=== PATIENT | female | born 1930 | race Caucasian/White ===

== ENCOUNTER → 2016-12-29 | Outpatient (CLI) | payer OTHER, MEDICARE | LOC: MMPC 11:11 | PROVIDERS: ATTEND Internal Medicine | DX: E78.00 Pure hypercholesterolemia, unspecified (principal); E03.9 Hypothyroidism, unspecified; Z95.5 Presence of coronary angioplasty implant and graft | CPT/HCPCS: 99213; G0463 ==

== ENCOUNTER → 2017-04-04 | Outpatient (CLI) | payer OTHER, MEDICARE ==
[2017-04-04 09:10] LABS: BASOPHILS # (AUTO) 0.06 10*3/UL; BASOPHILS % (AUTO) 1.2 % (0-1); EOSINOPHILS # (AUTO) 0.04 10*3/UL; EOSINOPHILS % (AUTO) 0.8 % (0-8); HEMATOCRIT 43.2 % (37.0-47.0); HEMOGLOBIN 14.6 g/dL (12.0-16.0); LYMPHOCYTES # (AUTO) 1.74 10*3/uL; MEAN CORPUSCULAR HGB CONC 33.8 g/dL (33-37); MEAN CORPUSCULAR VOLUME 97.7 FL (81-99); MEAN PLATELET VOLUME 9.9 FL (7.4-12.2); MONOCYTES # (AUTO) 0.63 10*3/UL (0.3-0.8); MONOCYTES % (AUTO) 12.6 % (5-15); NEUTROPHILS # (AUTO) 2.53 10*3/UL; NEUTROPHILS % (AUTO) 50.5 % (50-80); RED BLOOD COUNT 4.42 10^6/uL (4.20-5.40)
[2017-04-04 09:17] LABS: BUN/CREATININE RATIO 18.33 (6-20); CALCIUM 9.5 mg/dL (8.7-10.7)
[2017-04-04 09:18] LABS: PLATELET MORPHOLOGY COMMENT NORMAL MORPHOLOGY (NORM); RBC MORPHOLOGY COMMENT NORMAL MORPHOLOGY (NORM); WBC MORPHOLOGY COMMENT NORMAL MORPHOLOGY (NORM)
[2017-04-04 09:37] LABS: CHOL/HDL RATIO 2.75 RATIO (0-4.0); LDL CHOLESTEROL,CALCULATED 62.4 mg/dL
[2017-04-04 10:44] LABS: FREE T4 (FREE THYROXINE) 1.13 ng/dL (0.93-1.71)
== END ==
LOC: LAB 08:49
PROVIDERS: ATTEND Internal Medicine
DX: E78.5 Hyperlipidemia, unspecified (principal); E03.9 Hypothyroidism, unspecified; I10 Essential (primary) hypertension; Z95.5 Presence of coronary angioplasty implant and graft
CPT/HCPCS: 36415; 80053; 80061; 82550; 84439; 84443; 85025

== ENCOUNTER 2018-11-01 19:06 | Inpatient (IN) ==
--- NOTE | 2018-11-01 19:46 | PDOC ---
Gen Adult / Medical Screen HPI - General Chief Complaint: General Medical Stated Complaint: cough, dizzy, weakness x 1 week Date Seen by Provider: 11/01/18 Time Seen by Provider: 19:39 Source: POSITIVE: Patient Exam Limitations: POSITIVE: No limitations, Clinical condition Nurse's Notes Reviewed & Considered: Yes - Indicators Abnormal Mental Status: No - History of Present Illness Initial Comments: This is a well-developed, well-nourished, very pleasant, 88-year-old female, who comes in today with upper respiratory symptoms. Patient comes in today with cough, fever, runny nose, that has been ongoing for the last couple of days and got worse today. She denies any headache, no sore throat, she does have some shortness of breath and cough with chest pain associated with her coughing. She denies any nausea vomiting or diarrhea, no hematuria or dysuria, no rashes, no myalgias or arthralgias. Body Location Affected: REPORTS: Chest Timing: REPORTS: Gradual, Getting Worse Duration: >24 hours Similar Symptoms Previously: No Recent Care Received: REPORTS: Denies Any Prior Injuries Related to Current Complaint?: No - Patient Home Medications Home Medications: Home Medications Nitroglycerin 0.4 mg SL PRN 04/01/11 cholecalciferol (vitamin D3) 2,000 unit tablet 2,000 unit PO QDAY tab 04/04/18 cinnamon bark 500 mg capsule 1,000 mg PO QDAY cap 04/04/18 magnesium oxide 400 mg (241.3 mg magnesium) tablet 400 mg PO QDAY tab 04/04/18 multivitamin-ferrous fumarate-folic acid 18 mg-400 mcg tablet 1 tab PO QDAY 04/04/18 levothyroxine 75 mcg tablet 75 mcg PO QDAY #90 tab 06/04/18 losartan 25 mg tablet 25 mg PO QDAY #90 tab 06/04/18 metoprolol tartrate 50 mg tablet 25 mg PO BID #90 tab 06/04/18 rosuvastatin 20 mg tablet 20 mg PO QHS #90 tab 07/02/18 spironolactone 25 mg-hydrochlorothiazide 25 mg tablet 0.5 tab PO QDAY #60 tab 08/29/18 [place] eyes PO TID 10/03/18 azithromycin 250 mg tablet 500 mg PO Q24H #6 tab 10/30/18 - Patient Allergies Allergies/Adverse Reactions: Allergies Allergy/AdvReac Type Severity Reaction Status Date / Time [id number] Reductase AdvReac Intermediate myalgias Verified 11/01/18 19:07 Inhibitor Past Medical History - heen HEENT History: Cataracts, Dentures/Partials Cardiovascular History: Hypertension, CAD, Hyperlipidemia Additional Cardiovasular History: CARDIAC STENT X1 Respiratory History: Denies History Gastrointestinal History: GERD, Other (please comment) Additional Gastrointestinal History: DIARRHEA/ GERD/ ABD PAIN, CHANGE IN STOOL CALIBUR/GASTRITIS/ COLON POLYPS/ ESOPHAGITIS Genitourinary History: Incontinence Endocrine History: Hypothyroidism, Other (please comment) Additional Endocrine History: MULTINODULAR GOITER ON, L-THYROXINE FOR SUPRESSION Musculoskeletal History: Osteoporosis Prosthesis or Implant: No Neurological History: Denies History Blood Disorders: Denies History Psychiatric History: Denies History History of Sexually Transmitted Diseases: No Cancer History: Skin Cancer Treatment / Date(s) of Treatment: , 2016 In Past Year Been Physically Harmed or Verbally Threatened: No History of MDRO: No History of Other Communicable Diseases: No Tobacco Use: Never Smoker Alcohol Use: None In the Past 12 Months, Have Used or Abuse Any Substance: None Previous Surgical History: Yes Type / Date of Surgery: APPY/ STACEY/ P HYST/ THYROIDECTOMY/CARDIAC STENT X1/colonoscopy Anesthesia Reactions: No Malignant Hyperthermia: No Significant Family History: Other (please comment) Additional Family History: mother had chronic lung issues ROS - Limitations ROS Limitations: No Limitations Constitution: REPORTS: Denies Symptoms Cardiovascular: REPORTS: Chest Pain (With coughing) Respiratory: REPORTS: Cough Non Productive, Hurts To Breathe, Shortness Of Breath, Wheezing Neurological: REPORTS: Denies Neuro Symptoms Gastrointestinal: REPORTS: Denies GI Symptoms Endocrine: REPORTS: Denies Symptoms Musculoskeletal: REPORTS: Denies MS Symptoms Genitourinary: REPORTS: Denies Symptoms Eyes: REPORTS: Denies Symptoms ENT: REPORTS: Nasal Drainage Skin: REPORTS: Denies Skin Symptoms Lympathic: REPORTS: Denies Lympathic Symptoms Immunologic: POSITIVE: Denies Symptoms Psychiatric: POSITIVE: Denies Psych Symptoms Gen Adult/Medical Screen Exam - General Appearance General Appearance: POSITIVE: Alert, Cooperative, No Acute Distress, No Evidence of Trauma - HEENT HEENT: POSITIVE: Head Inspection Nml, Eyes Inspection Nml, Ears Inspection Nml, Nose Inspection Nml, Oral/Dental Inspect. Nml, Pharynx Inspect. Nml, PERRL, EOMI - Pupils Pupil Size: 5 mm: Bilateral - Neck Neck: POSITIVE: Normal Inspection, Thyroid Normal - Respiratory Respiratory: POSITIVE: No Respiratory Distress, Chest Non-Tender, Wheezes (Right base) - Cardiovascular Cardiovascular: POSITIVE: Regular Rate & Rhythm, No Murmur, No Gallop, PMI Nor mal Peripheral Pulses: Radial (R): 4+ - Abdomen Abdomen: Soft: (All Quadrants), Normal Bowel Sounds: (All Quadrants), Denies Tenderness: (All Quadrants), No Splenomegaly: (All Quadrants), No Hepatomegaly: (All Quadrants), No Guarding: (All Quadrants), No Rebound: (All Quadrants), No Palpable Pulse: (All Quadrants), No Palpabale Mass: (All Quadrants), No Distention: (All Quadrants), No Rigidity: (All Quadrants) - Back Back: POSITIVE: Normal Inspection - Neurological / Psychological Mental Status: POSITIVE: Mood Normal, Affect Normal Orientation: POSITIVE: Oriented x 3 - Skin Skin: POSITIVE: Normal Color, Warm, Dry, No Rash - Extremities Extremity: Non-Tender: (All Extremities), Normal ROM: (All Extremities), Normal Inspection: (All Extremities), Pelvis Stable: (All Extremities) Procedures - Laceration/Wound Repair Did patient have a laceration repair: No Gen Adlt/Medical Scrn Progress - Results Reviewed by me Xrays/CTs/US Reviewed by me: Yes Discussed with Radiologist: Yes Lab Results Reviewed by Me: Yes CBC and BMP: 11/01/18 20:05 11/01/18 20:05 Lab Results:: Laboratory Results 11/01/18 11/01/18 11/01/18 20:00 20:05 20:05 WBC 20.77 H RBC 4.04 L Hgb 13.4 Hct 39.4 MCV 97.5 MCH 33.2 H MCHC 34.0 RDW Std Deviation 47.0 RDW Coeff of Bailey 13.5 Plt Count 194 MPV 10.0 Immature Gran % (Auto) 0.2 Neut % (Auto) 82.4 H Lymph % (Auto) 9.1 L [place] % (Auto) 8.0 Eos % (Auto) 0.1 Baso % (Auto) 0.2 Immature Gran # (Auto) 0.05 Neut # (Auto) 17.10 Lymph # (Auto) 1.90 [place] # (Auto) 1.66 H Eos # (Auto) 0.02 Baso # (Auto) 0.04 WBC Morphology Comment Normal morphology Plt Morphology Comment Normal morphology RBC Morph Comment Normal morphology VBG pH 7.48 H VBG pCO2 38 L VBG HCO3 28 H VBG Base Excess 4 H Sodium 139 Potassium 4.2 Chloride 101 Carbon Dioxide 25 Anion Gap 13 BUN 30 H Creatinine 1.2 BUN/Creatinine Ratio 25.00 H Glucose 138 H Calculated Osmolality 295.0 H Lactic Acid Calcium 9.6 Total Bilirubin 1.8 H AST 58 H ALT 59 H Alkaline Phosphatase 121 C-Reactive Protein 25.7 H NT-Pro-B Natriuret Pep 559 H Total Protein 6.7 Albumin 3.9 Globulin 2.8 Albumin/Globulin Ratio 1.30 Monoscreen Group A Strep Screen 11/01/18 11/01/18 20:05 20:15 WBC RBC Hgb Hct MCV MCH MCHC RDW Std Deviation RDW Coeff of Bailey Plt Count MPV Immature Gran % (Auto) Neut % (Auto) Lymph % (Auto) [place] % (Auto) Eos % (Auto) Baso % (Auto) Immature Gran # (Auto) Neut # (Auto) Lymph # (Auto) [place] # (Auto) Eos # (Auto) Baso # (Auto) WBC Morphology Comment Plt Morphology Comment RBC Morph Comment VBG pH VBG pCO2 VBG HCO3 VBG Base Excess Sodium Potassium Chloride Carbon Dioxide Anion Gap BUN Creatinine BUN/Creatinine Ratio Glucose Calculated Osmolality Lactic Acid 1.6 Calcium Total Bilirubin AST ALT Alkaline Phosphatase C-Reactive Protein NT-Pro-B Natriuret Pep Total Protein Albumin Globulin Albumin/Globulin Ratio Monoscreen Negative Group A Strep Screen Negative - Patient's Progress Pain Medication Addressed: POSITIVE: Yes Re-Examine Time: 21:15 Status: POSITIVE: Improved MDM / ED Course: Patient was evaluated, an IV started, blood drawn and sent to the lab for studies, chest x-ray was obtained. Findings: Blood cultures are pending, CBC shows white count of 20.77, hemoglobin and hematocrit platelets are normal, neutrophils are elevated at 82.4%, lymphocytes are 9.1%. Blood gases show pH is 7.48, PCO2 of 38, bicarbonate of 28, base excess of 4. CMP shows a BUN of 30, glucose of 138, total bilirubin 1.8, AST of 58, ALT of 59. Lactic acid is 1.6. CRP is 25.7 and BNP is 559. [place] is negative. Strep is negative. Bilateral thigh respiratory pathogen panel is negative. Chest x-ray, per my interpretation, shows bibasilar pneumonia. Assessment: Pneumonia with hypoxia and fever. Plan: Patient receives Rocephin, azithromycin, and DuoNeb. She is being admitted by the hospitalist. - Consult Consult (If Yes, Name of Consulting MD & Time Called): Yes (Dr. Hester at 2115 hrs.) Consulting MD will see pt:: POSITIVE: [facility] [place] Admit Counseled: POSITIVE: Patient, Family, RE: Lab Results, RE: Radiology Results, RE: DX, RE: Need for F/U Patient Care Time - Estimated PCT Patient Care Time (In Minutes): 45 Vital Signs - Recent Vital Signs Vital Signs: Vital Signs (Last 8 hours) Temp Pulse Pulse Resp BP Pulse Ox 11/01/18 20:21 124 H 18 11/01/18 20:20 100 20 93 11/01/18 20:17 98.1 F 119 H 24 130/82 92 - VS Reviewed Vital Signs Reviewed: Yes Discharge Clinical Impression: Fever, Pneumonia, Elevated LFTs Discharge Disposition: Admit to Inpatient Condition: Stable Follow Up With: ALCIDES GALVAN [Primary Care Provider] - Date Decision to Admit to Inpatient: 11/01/18 Time Decision to Admit to Inpatient: 21:18
[2018-11-01] MEDS ORDERED: ONDANSETRON 4 MG/2 ML VIAL IVP ONE (19:47)
[2018-11-01] MEDS ORDERED: Sodium Chloride 0.9% 1,000 ML PRIMARY IV ONE (19:47)
[2018-11-01] MEDS ORDERED: KETOROLAC 15 MG/1 ML VIAL IVP ONE (19:47)
[2018-11-01] MEDS ORDERED: IPRATROPIUM/ALBUTEROL SULFATE 3 ML NEB NEB ONE (19:50)
[2018-11-01 20:15] LABS: VENOUS PH 7.48 (7.32-7.42)
[2018-11-01 20:20] LABS: BASOPHILS # (AUTO) 0.04 10*3/UL; BASOPHILS % (AUTO) 0.2 % (0-1); EOSINOPHILS # (AUTO) 0.02 10*3/UL; EOSINOPHILS % (AUTO) 0.1 % (0-8); Hematocrit [HCT] 39.4 % (37.0-47.0); Hemoglobin [HGB] 13.4 g/dL (12.0-16.0); MEAN CORPUSCULAR HEMOGLOBIN 33.2 PG (27-31); MEAN CORPUSCULAR VOLUME 97.5 FL (81-99); MONOCYTES # (AUTO) 1.66 10*3/UL (0.3-0.8); NEUTROPHILS % (AUTO) 82.4 % (50-80); RED BLOOD COUNT 4.04 10^6/uL (4.20-5.40)
[2018-11-01 20:28] LABS: PLATELET MORPHOLOGY COMMENT NORMAL MORPHOLOGY (NORM); RBC MORPHOLOGY COMMENT NORMAL MORPHOLOGY (NORM); WBC MORPHOLOGY COMMENT NORMAL MORPHOLOGY (NORM)
[2018-11-01 20:31] LABS: BLOOD UREA NITROGEN 30 mg/dL (7-22); SERUM ALBUMIN 3.9 g/dL (3.5-4.8)
[2018-11-01] MEDS ORDERED: cefTRIAXone Inj 2 GM in Sodium Chloride 0.9% 100 ML IV ONE (20:49)
--- NOTE | 2018-11-01 21:10 | DI ---
EXAM: XR Chest, 2 Views CLINICAL HISTORY: Fever, cough. TECHNIQUE: Frontal and lateral views of the chest. COMPARISON: CT chest dated 01/30/2007. FINDINGS: Lungs: Mild interstitial prominence in the lungs. Mild left basilar opacity. Pleural space: No significant pleural effusion. No pneumothorax. Heart: Normal cardiac silhouette size. Mediastinum: Unremarkable. No mediastinal widening. Bones/joints: Osseous degenerative changes. Osseous structures appear intact. IMPRESSION: 1. Mild left basilar opacity which may represent atelectasis or subtle pneumonia in the appropriate clinical setting. Recommend clinical correlation and follow-up imaging to assess for resolution. 2. Mild interstitial prominence in the lungs which may be related to mild interstitial edema, chronic interstitial lung disease or other process.
--- NOTE | 2018-11-01 21:31 | PDOC ---
HPI - History of Present Illness Date of Service: 11/01/18 Time of Service: 22:30 Chief Complaint: Cough, decreased appetite, fever the last few days History of Present Illness: This is an 88 years old female with medical history significant for history of hypertension, hypothyroidism, hypercholesterolemia and coronary artery disease with previous stent who presented to the hospital with history of cough, decreased appetite, fever intermittently the last few days. Apparently she did go to the urgent clinic on Monday they put her on decongestant. She continued to have symptoms with cough and shortness of breath so they brought her to the ER. Evaluation in the ER revealed hypoxia 88 with activity. Her white count was elevated at 21,000, her CRP was also elevated and a chest x-ray suggested pneumonia. She was given antibiotics and was admitted. Past Medical History Medical History: 1. History of hypertension. 2. History of hypercholesterolemia. 3. History of hypothyroidism. 4. History of coronary artery disease with previous stent Surgical History: 1. History of hysterectomy. 2. History of partial thyroidectomy for multinodular goiter. 3. History of cholecystectomy. 4. History of appendectomy Past Social History: Does not smoke, does not drink known drugs. She described herself as being active. Tobacco Use: Never Smoker In the Past 12 Months, Have Used or Abuse Any of the Following Substance: None Alcohol Use: None Medication / Allergies Home Medications: Home Medications Medication Instructions Recorded Confirmed Type Nitroglycerin 0.4 mg SL PRN 04/01/11 10/30/18 History cholecalciferol (vitamin D3) 2,000 2,000 unit PO QDAY tab 04/04/18 10/30/18 History unit tablet cinnamon bark 500 mg capsule 1,000 mg PO QDAY cap 04/04/18 11/01/18 History magnesium oxide 400 mg (241.3 mg 400 mg PO QDAY tab 04/04/18 11/01/18 History magnesium) tablet multivitamin-ferrous 1 tab PO QDAY 04/04/18 11/01/18 History fumarate-folic acid 18 mg-400 mcg tablet levothyroxine 75 mcg tablet 75 mcg PO QDAY #90 tab 06/04/18 11/01/18 Rx losartan 25 mg tablet 25 mg PO QDAY #90 tab 06/04/18 11/01/18 Rx metoprolol tartrate 50 mg tablet 25 mg PO BID #90 tab 06/04/18 11/01/18 Rx rosuvastatin 20 mg tablet 20 mg PO QHS #90 tab 07/02/18 11/01/18 Rx spironolactone 25 0.5 tab PO QDAY #60 tab 08/29/18 11/01/18 Rx mg-hydrochlorothiazide 25 mg tablet [place]mond eyes PO TID 10/03/18 10/30/18 History azithromycin 250 mg tablet 500 mg PO Q24H #6 tab 10/30/18 10/30/18 Rx Allergies/Adverse Reactions: Allergies Allergy/AdvReac Type Severity Reaction Status Date / Time [id number] Reductase AdvReac Intermediate myalgias Verified 11/01/18 19:07 Inhibitor Review of Systems - Review of Systems All Systems: Reviewed & No Additional Complaints Except as Stated Exam - Vitals Vital Signs: Vital Signs Temperature 98.1 F Temperature Source Temporal Artery Scan Pulse Rate [Pulse Oximeter] 119 Pulse Rate 124 Respiratory Rate 18 Blood Pressure [Left Arm] 130/82 Pulse Ox 93 Oxygen Delivery Method Room Air Height 5 ft 2 in Weight 140 lb - General General Appearance: No Acute Distress, Cooperative - Head Head Exam: Normal Inspection - Eye Eye Exam: POSITIVE: Normal Appearance - ENT ENT Exam: POSITIVE: Normal Exam - Neck Neck Exam: Normal Inspection - Respiratory Additional Respiratory Exam Details: Crackles heard at the lung bases - Cardiovascular Cardiovascular Exam: POSITIVE: RRR - GI/Abdominal GI/Abdominal Exam: POSITIVE: Normal Bowel Sounds, Non Tender, Non Distended, Soft, No Organomegaly - Rectal Rectal Exam: POSITIVE: Deferred - External Exam: POSITIVE: Deferred Exam: POSITIVE: Deferred - Extremities Extremities Exam: POSITIVE: Normal Inspection - Back Back Exam: POSITIVE: Normal Inspection - Neurological Neurological Exam: POSITIVE: Alert, Oriented x 3, CN II-XII Intact, No Facial Droop, Speech Intact / Clear, Moves All Extremities Equally - Psychiatric Psychiatric Exam: POSITIVE: Normal Affect Results - Labs CBC and BMP: 11/02/18 04:43 11/02/18 04:43 - Imaging Status: Report Reviewed by Me (Chest X ray 1. Mild left basilar opacity which may represent atelectasis or subtle pneumonia in the appropriate clinical setting. Recommend clinical correlation and follow-up imaging to assess for resolution. 2. Mild interstitial prominence in the lungs which may be related to mild interstitial edema, chronic interstitial lung disease or other process.) Assessment and Plan - Patient Problems (1) Pneumonia Current Visit: Yes Status: Acute Comment: She did receive Rocephin and Zithromax will continue with those. Code(s): J18.9 - Pneumonia, unspecified organism (2) Elevated LFTs Current Visit: Yes Status: Acute Comment: Unclear reason may be secondary to infection or Crestor. We'll repeat it tomorrow Code(s): R94.5 - Abnormal results of liver function studies (3) Hypothyroidism Current Visit: Yes Status: Acute Comment: Same med Code(s): E03.9 - Hypothyroidism, unspecified (4) History of hypertension Current Visit: Yes Status: Acute Comment: Continue metoprolol, losartan but will hold off on the diuretic Code(s): Z86.79 - Personal history of other diseases of the circulatory system
[2018-11-01] MEDS ORDERED: LIDOCAINE W/ SODIUM BICARB 0.5 ML SYR SUBD PRN (22:39)
[2018-11-01] MEDS: Metoprolol TARTRATE Tab 25 MG TAB PO SCH (23:06)
[2018-11-01] MEDS: Sodium Chloride 0.9% 1,000 ML PRIMARY IV SCH (23:10)
[2018-11-02] MEDS: LEVOTHYROXINE 75 MCG TABLET PO SCH (04:46)
[2018-11-02 05:21] LABS: BLOOD UREA NITROGEN 26 mg/dL (7-22); BUN/CREATININE RATIO 23.63 (6-20); SERUM ALBUMIN 3.1 g/dL (3.5-4.8)
[2018-11-02 05:25] LABS: BASOPHILS # (AUTO) 0.03 10*3/UL; BASOPHILS % (AUTO) 0.2 % (0-1); EOSINOPHILS # (AUTO) 0.02 10*3/UL; EOSINOPHILS % (AUTO) 0.1 % (0-8); Hematocrit [HCT] 35.4 % (37.0-47.0); Hemoglobin [HGB] 11.8 g/dL (12.0-16.0); LYMPHOCYTES # (AUTO) 0.95 10*3/uL; MEAN CORPUSCULAR HEMOGLOBIN 32.5 PG (27-31); MEAN CORPUSCULAR HGB CONC 33.3 g/dL (33-37); MEAN CORPUSCULAR VOLUME 97.5 FL (81-99); MEAN PLATELET VOLUME 10.1 FL (7.4-12.2); MONOCYTES % (AUTO) 7.4 % (5-15); NEUTROPHILS # (AUTO) 16.54 10*3/UL; RED BLOOD COUNT 3.63 10^6/uL (4.20-5.40)
[2018-11-02 05:43] LABS: PLATELET MORPHOLOGY COMMENT NORMAL MORPHOLOGY (NORM); RBC MORPHOLOGY COMMENT NORMAL MORPHOLOGY (NORM); WBC MORPHOLOGY COMMENT NORMAL MORPHOLOGY (NORM)
[2018-11-02] MEDS: IPRATROPIUM/ALBUTEROL SULFATE 3 ML NEB NEB PRN ×2 (07:08→10:36)
[2018-11-02] MEDS: Metoprolol TARTRATE Tab 25 MG TAB PO SCH ×2 (08:50→20:17)
[2018-11-02] MEDS: LOSARTAN 25 MG TABLET PO SCH (08:50)
[2018-11-02] MEDS: Sodium Chloride 0.9% 1,000 ML PRIMARY IV SCH (12:58)
--- NOTE | 2018-11-02 14:27 | PDOC(PROG) ---
Date of Service: 11/02/18 Time of Service: 23:15 Interval History: Subjective Feels somewhat better. Still have the cough though. Some mild shortness of breath. No wheezing. She did find the breathing treatment helpful. Appetite still not great. Objective : Data - Labs CBC and BMP: 11/02/18 04:43 11/02/18 04:43 Objective : Exam - General General Appearance: No Acute Distress, Cooperative - Head Head Exam: Normal Inspection - Eye Eye Exam: Normal Appearance - ENT ENT Exam: Normal Exam - Neck Neck Exam: Normal Inspection - Respiratory Additional Respiratory Exam Details: Few crackles at the bases here - Cardiovascular Cardiovascular Exam: RRR - GI/Abdominal GI/Abdominal Exam: Normal Bowel Sounds, Non Tender, Non Distended, Soft, No Organomegaly - Rectal Rectal Exam: Deferred - External Exam: Deferred Exam: Deferred - Extremities Extremities Exam: Normal Inspection - Back Back Exam: Normal Inspection - Neurological Neurological Exam: Alert, Oriented x 3, CN II-XII Intact, No Facial Droop, Speech Intact / Clear, Moves All Extremities Equally - Psychiatric Psychiatric Exam: Normal Affect - Integumentary Integumentary Exam: Normal Color Assessment and Plan - Patient Problems (1) Pneumonia Current Visit: Yes Status: Acute Comment: Continue current IV antibiotics. Code(s): J18.9 - Pneumonia, unspecified organism (2) Elevated LFTs Current Visit: Yes Status: Acute Comment: Somewhat improved. May be secondary to Crestor. Code(s): R94.5 - Abnormal results of liver function studies (3) Hypothyroidism Current Visit: Yes Status: Acute Comment: Same med Code(s): E03.9 - Hypothyroidism, unspecified (4) History of hypertension Current Visit: Yes Status: Acute Comment: Continue metoprolol and losartan continue holding the diuretic. Code(s): Z86.79 - Personal history of other diseases of the circulatory system
[2018-11-02] MEDS ORDERED: Sodium Chloride 0.9% 100 ML IV ONE (20:14)
[2018-11-02] MEDS: ACETAMINOPHEN 325 MG TABLET PO PRN (20:18)
[2018-11-02] MEDS: cefTRIAXone Inj 2 GM in Sodium Chloride 0.9% 100 ML IV SCH (20:18)
[2018-11-02] MEDS ORDERED: Rosuvastatin Tab 20 MG TAB PO SCH (21:00)
[2018-11-03] MEDS: Sodium Chloride 0.9% 1,000 ML PRIMARY IV SCH (04:29)
[2018-11-03] MEDS: LEVOTHYROXINE 75 MCG TABLET PO SCH (04:35)
[2018-11-03 05:09] LABS: BASOPHILS # (AUTO) 0.03 10*3/UL; BASOPHILS % (AUTO) 0.2 % (0-1); EOSINOPHILS # (AUTO) 0.05 10*3/UL; EOSINOPHILS % (AUTO) 0.3 % (0-8); Hematocrit [HCT] 33.3 % (37.0-47.0); Hemoglobin [HGB] 11.1 g/dL (12.0-16.0); LYMPHOCYTES # (AUTO) 1.41 10*3/uL; MEAN CORPUSCULAR HEMOGLOBIN 32.8 PG (27-31); MEAN CORPUSCULAR HGB CONC 33.3 g/dL (33-37); MEAN CORPUSCULAR VOLUME 98.5 FL (81-99); MEAN PLATELET VOLUME 10.3 FL (7.4-12.2); MONOCYTES % (AUTO) 8.7 % (5-15); NEUTROPHILS # (AUTO) 15.25 10*3/UL; NEUTROPHILS % (AUTO) 82.7 % (50-80); RED BLOOD COUNT 3.38 10^6/uL (4.20-5.40)
[2018-11-03 05:13] LABS: PLATELET MORPHOLOGY COMMENT NORMAL MORPHOLOGY (NORM); RBC MORPHOLOGY COMMENT NORMAL MORPHOLOGY (NORM); WBC MORPHOLOGY COMMENT NORMAL MORPHOLOGY (NORM)
[2018-11-03 05:15] LABS: BLOOD UREA NITROGEN 19 mg/dL (7-22); SERUM ALBUMIN 2.9 g/dL (3.5-4.8)
[2018-11-03] MEDS: LEVALBUTEROL HCL 1.25 MG/3 ML NEB PRN ×2 (07:34→12:25)
--- NOTE | 2018-11-03 07:43 | PDOC(PROG) ---
Date of Service: 11/03/18 Time of Service: 07:45 Interval History: Subjective She said she feels better compared to when she came in. She is still having the cough but not as bad as before. Some mild shortness of breath. Objective : Data - Labs CBC and BMP: 11/03/18 04:28 11/03/18 04:28 Objective : Exam - General General Appearance: No Acute Distress, Cooperative - Head Head Exam: Normal Inspection - Eye Eye Exam: Normal Appearance - ENT ENT Exam: Normal Exam - Neck Neck Exam: Normal Inspection - Respiratory Additional Respiratory Exam Details: Few crackles and occasional wheeze at the bases - Cardiovascular Cardiovascular Exam: RRR - GI/Abdominal GI/Abdominal Exam: Normal Bowel Sounds, Non Tender, Non Distended, Soft, No Organomegaly - Rectal Rectal Exam: Deferred - External Exam: Deferred Exam: Deferred - Extremities Extremities Exam: Normal Inspection - Back Back Exam: Normal Inspection - Neurological Neurological Exam: Alert, Oriented x 3, CN II-XII Intact, No Facial Droop, Speech Intact / Clear, Moves All Extremities Equally - Psychiatric Psychiatric Exam: Normal Affect Assessment and Plan - Patient Problems (1) Pneumonia Current Visit: Yes Status: Acute Comment: Continue current antibiotics. Will repeat her labs tomorrow. Her white count still elevated. She did receive some steroid last week and maybe that played part in the elevated white count. However her CRP was elevated when she came in which suggests there is an inflammatory response. Code(s): J18.9 - Pneumonia, unspecified organism (2) Elevated LFTs Current Visit: Yes Status: Acute Comment: Still mildly elevated will hold her Crestor. We'll keep an eye on her LFTs will order ultrasound tomorrow. Code(s): R94.5 - Abnormal results of liver function studies (3) Hypothyroidism Current Visit: Yes Status: Acute Comment: Same med Code(s): E03.9 - Hypothyroidism, unspecified (4) History of hypertension Current Visit: Yes Status: Acute Comment: Same medications Code(s): Z86.79 - Personal history of other diseases of the circulatory system
[2018-11-03] MEDS: Metoprolol TARTRATE Tab 25 MG TAB PO SCH ×2 (08:28→20:41)
[2018-11-03] MEDS: LOSARTAN 25 MG TABLET PO SCH (08:28)
[2018-11-03] MEDS: GUAIFENESIN/DM 5 ML UD CUP PO PRN (08:29)
[2018-11-03] MEDS: ACETAMINOPHEN 325 MG TABLET PO PRN (19:35)
[2018-11-03] MEDS: cefTRIAXone Inj 2 GM in Sodium Chloride 0.9% 100 ML IV SCH (20:41)
[2018-11-04 04:19] LABS: BASOPHILS # (AUTO) 0.04 10*3/UL; BASOPHILS % (AUTO) 0.2 % (0-1); EOSINOPHILS # (AUTO) 0.07 10*3/UL; EOSINOPHILS % (AUTO) 0.4 % (0-8); Hematocrit [HCT] 36.3 % (37.0-47.0); Hemoglobin [HGB] 11.5 g/dL (12.0-16.0); LYMPHOCYTES # (AUTO) 1.65 10*3/uL; MEAN CORPUSCULAR HGB CONC 31.7 g/dL (33-37); MEAN CORPUSCULAR VOLUME 97.8 FL (81-99); MONOCYTES # (AUTO) 1.48 10*3/UL (0.3-0.8); MONOCYTES % (AUTO) 8.7 % (5-15); NEUTROPHILS # (AUTO) 13.71 10*3/UL; NEUTROPHILS % (AUTO) 80.5 % (50-80); RED BLOOD COUNT 3.71 10^6/uL (4.20-5.40)
[2018-11-04 04:33] LABS: PLATELET MORPHOLOGY COMMENT NORMAL MORPHOLOGY (NORM); RBC MORPHOLOGY COMMENT NORMAL MORPHOLOGY (NORM); WBC MORPHOLOGY COMMENT NORMAL MORPHOLOGY (NORM)
[2018-11-04 04:38] LABS: BLOOD UREA NITROGEN 17 mg/dL (7-22); SERUM ALBUMIN 3.3 g/dL (3.5-4.8)
[2018-11-04] MEDS: LEVOTHYROXINE 75 MCG TABLET PO SCH (05:13)
[2018-11-04] MEDS: LEVALBUTEROL HCL 1.25 MG/3 ML NEB PRN ×2 (06:07→13:13)
--- NOTE | 2018-11-04 08:08 | PDOC(PROG) ---
Date of Service: 11/04/18 Time of Service: 08:00 Interval History: Subjective Patient said she feels better, maybe about 60% better. The cough is less. Shortness of breath is less. The cough is productive but she doesn't know the color. Objective : Data - Labs CBC and BMP: 11/04/18 03:55 11/04/18 03:55 Objective : Exam - General General Appearance: No Acute Distress, Cooperative - Head Head Exam: Normal Inspection - Eye Eye Exam: Normal Appearance - Neck Neck Exam: Normal Inspection - Respiratory Additional Respiratory Exam Details: Few crackles in harsh breath sounds in the lung bases - Cardiovascular Cardiovascular Exam: RRR - GI/Abdominal GI/Abdominal Exam: Normal Bowel Sounds, Non Tender, Non Distended, Soft, No Organomegaly - Rectal Rectal Exam: Deferred - External Exam: Deferred - Extremities Extremities Exam: Normal Inspection - Back Back Exam: Normal Inspection - Neurological Neurological Exam: Alert, Oriented x 3, CN II-XII Intact, No Facial Droop, Speech Intact / Clear, Moves All Extremities Equally - Psychiatric Psychiatric Exam: Normal Affect - Integumentary Integumentary Exam: Normal Color Assessment and Plan - Patient Problems (1) Pneumonia Current Visit: Yes Status: Acute Comment: Continue antibiotics, however I think we'll switch to Levaquin, the reason her liver pattern is worsening today, so I stopped the Zithromax. We will watch her another day in the hospital, I think I'll do a CT of her chest once I have the ultrasound. As in addition to the elevated LFT there is a elevation of the CRP. Code(s): J18.9 - Pneumonia, unspecified organism (2) Elevated LFTs Current Visit: Yes Status: Acute Comment: Maybe secondary to the pneumonia itself, or potentially medication we stopped the Crestor, I stopped the Tylenol and will switch antibiotics to Levaquin instead of Zithromax. Will watch her another day in the hospital we'll do ultrasound of her liver. Will order other serologies including autoimmune serologies. Code(s): R94.5 - Abnormal results of liver function studies (3) Hypothyroidism Current Visit: Yes Status: Acute Comment: Same meds Code(s): E03.9 - Hypothyroidism, unspecified (4) History of hypertension Current Visit: Yes Status: Acute Comment: Same medications Code(s): Z86.79 - Personal history of other diseases of the circulatory system
[2018-11-04] MEDS: GUAIFENESIN/DM 5 ML UD CUP PO PRN (09:43)
[2018-11-04] MEDS: LOSARTAN 25 MG TABLET PO SCH (09:43)
[2018-11-04] MEDS: Metoprolol TARTRATE Tab 25 MG TAB PO SCH ×2 (09:43→20:24)
[2018-11-04] MEDS: ENOXAPARIN SODIUM 30 MG/0.3 ML SYRINGE SUBCUT SCH (09:43)
[2018-11-04] MEDS ORDERED: BISACODYL 10 MG SUPPOSITORY RECTAL PRN (09:49)
--- NOTE | 2018-11-04 09:49 | DI ---
Exam: US ABDOMEN INDICATION: Abnormal LFT TECHNIQUE: Real-time imaging of the abdomen is performed in transverse and longitudinal projections. COMPARISON: CT chest 01/30/07 FINDINGS: There is right pleural effusion. Cholecystectomy. Common bile duct diameter normal at 5 mm. Liver measures 11.2 cm in length demonstrating normal echotexture without focal lesion. Pancreas is unremarkable. Right kidney measures 9.1 cm in length and is unremarkable without hydronephrosis or cystic or solid lesions. Proximal and mid abdominal aortic caliber are within normal limits. Distal abdominal aorta is not well seen. No free fluid in the right upper quadrant. Inferior vena cava is visualized. IMPRESSION: 1. Liver is unremarkable. 2. No biliary ductal dilatation. 3. Cholecystectomy. 4. Pancreas is unremarkable by ultrasound. 5. There is right pleural effusion.
--- NOTE | 2018-11-04 11:10 | DI ---
Exam: CT CHEST With Contrast INDICATION: Hypoxia, cough, persistent high white blood cell count TECHNIQUE: Multiple, contiguous 5mm axial cuts of the chest are obtained following the administration of IV contrast. High resolution axial images as well as sagittal and coronal reformatted images are available. COMPARISON: CT chest 01/30/2007, chest radiograph 11/01/18 FINDINGS: Moderate bilateral free flowing pleural effusion measuring up to 3 mm in thickness. There is associated compressive atelectasis of the adjacent lung bases due to pleural effusion. Patchy multifocal peripheral alveolar airspace infiltrates in the bilateral upper lobes, bilateral lower lobes, lingula and to lesser extent right middle lobe medial segment. Multifocal pneumonia is a consideration. Aspiration may also be considered. Enlarged subcarinal lymph node measuring 3.8 x 2.3 cm. Additional mediastinal lymph nodes for example an AP window node measuring 1.5 cm and 1.9 cm and a few precarinal and pretracheal lymph nodes largest approximately 1 cm. No enlarged axillary lymph nodes. There is some prominence of the intralobular septa of the lungs. Possibility of interstitial edema is considered. No central or segmental pulmonary embolism. Evaluation of the subsegmental pulmonary arteries is limited due to suboptimal visualization and opacification. Thoracic aorta normal caliber without dissection. Mild vascular calcification. Heart size within normal limits. No pericardial effusion. No pneumothorax. Cholecystectomy. Multilevel endplate degenerative changes of the mid to lower thoracic spine of mild to moderate degree. No acute osseous abnormality. IMPRESSION: 1. Moderate bilateral free flowing pleural effusion measuring up to 3 mm in thickness. There is associated compressive atelectasis of the adjacent lung bases due to pleural effusion. 2. Patchy multifocal peripheral alveolar airspace infiltrates in the bilateral upper lobes, bilateral lower lobes, lingula and to lesser extent right middle lobe medial segment. Multifocal pneumonia is a consideration. Aspiration may also be considered. 3. Enlarged subcarinal lymph node measuring 3.8 x 2.3 cm. Additional mediastinal lymph nodes for example an AP window node measuring 1.5 cm and 1.9 cm and a few precarinal and pretracheal lymph nodes largest approximately 1 cm. No enlarged axillary lymph nodes. 4. There is some prominence of the intralobular septa of the lungs. Possibility of interstitial edema is considered. Heart size is normal. 5. No central or segmental pulmonary embolism. 6. Cholecystectomy.
[2018-11-04] MEDS ORDERED: SPIRONOLACT PO SCH (11:15)
[2018-11-04] MEDS ORDERED: HYDROCHLOROTHIAZID PO SCH (11:15)
[2018-11-04] MEDS ORDERED: FUROSEMIDE 10 MG/1 ML - 2 ML VIAL IVP ONE (11:15)
[2018-11-04] MEDS ORDERED: Levofloxacin (Premix) 750 MG/150 ML PIGGYBACK IV SCH ×2 (20:00)
[2018-11-04] MEDS: DOCUSATE 100 MG CAPSULE PO SCH (20:24)
[2018-11-05 04:33] LABS: Hematocrit [HCT] 32.9 % (37.0-47.0); Hemoglobin [HGB] 11.3 g/dL (12.0-16.0); MEAN CORPUSCULAR HEMOGLOBIN 33.1 PG (27-31); MEAN CORPUSCULAR HGB CONC 34.3 g/dL (33-37); MEAN CORPUSCULAR VOLUME 96.5 FL (81-99); MEAN PLATELET VOLUME 9.6 FL (7.4-12.2); RED BLOOD COUNT 3.41 10^6/uL (4.20-5.40)
[2018-11-05 04:37] LABS: BLOOD UREA NITROGEN 15 mg/dL (7-22); SERUM ALBUMIN 3.1 g/dL (3.5-4.8)
[2018-11-05 04:48] LABS: BAND NEUTROPHILS % 1 % (0-10); BASOPHILS % (MANUAL) 0 % (0-1); EOSINOPHILS % (MANUAL) 1 % (0-8); MONOCYTES % (MANUAL) 12 % (0-12); NEUTROPHILS % (MANUAL) 76 % (50-80); PLATELET MORPHOLOGY COMMENT NORMAL MORPHOLOGY (NORM); RBC MORPHOLOGY COMMENT NORMAL MORPHOLOGY (NORM); WBC MORPHOLOGY COMMENT NORMAL MORPHOLOGY (NORM)
[2018-11-05] MEDS: LEVOTHYROXINE 75 MCG TABLET PO SCH (05:25)
[2018-11-05] MEDS ORDERED: FUROSEMIDE 10 MG/1 ML - 2 ML VIAL IVP SCH (07:00)
[2018-11-05] MEDS: LOSARTAN 25 MG TABLET PO SCH (08:50)
[2018-11-05] MEDS: Metoprolol TARTRATE Tab 25 MG TAB PO SCH ×2 (08:51→22:15)
[2018-11-05] MEDS: ENOXAPARIN SODIUM 30 MG/0.3 ML SYRINGE SUBCUT SCH (08:52)
[2018-11-05] MEDS: DOCUSATE 100 MG CAPSULE PO SCH ×2 (08:52→22:14)
[2018-11-05] MEDS ORDERED: FUROSEMIDE 10 MG/1 ML - 2 ML VIAL IVP ONE (13:53)
[2018-11-05] MEDS ORDERED: Amoxicill/Clav 875/125mg Tab 1 TAB TAB PO ONE (13:54)
--- NOTE | 2018-11-05 14:02 | PDOC(PROG) ---
Date of Service: 11/05/18 Time of Service: 13:56 Interval History: Patient seen and evaluated earlier. Feels a little better but overall still states she feels weak. She does not have any significant dysphasia, does not have any cough when she eats, but when I spoke with occupational therapy, on a bedside swallow evaluation, the patient seems to be doing a lot of clearing of her throat. No nausea or vomiting. Objective : Data - Labs CBC and BMP: 11/05/18 04:18 11/05/18 04:18 Additional Lab Results: Laboratory Results 11/05/18 11/05/18 11/05/18 04:18 04:18 04:18 WBC 12.15 H RBC 3.41 L Hgb 11.3 L Hct 32.9 L MCV 96.5 MCH 33.1 H MCHC 34.3 RDW Std Deviation 46.2 RDW Coeff of Bailey 13.6 Plt Count 204 MPV 9.6 Neutrophils % (Manual) 76 Band Neutrophils % 1 Lymphocytes % (Manual) 10 Monocytes % (Manual) 12 Eosinophils % (Manual) 1 Basophils % (Manual) 0 Metamyelocytes % Not Reportable Myelocytes % Not Reportable Promyelocytes % Not Reportable Blast Cells Not Reportable WBC Morphology Comment Normal morphology Plt Morphology Comment Normal morphology RBC Morph Comment Normal morphology Sodium 140 Potassium 3.7 L Chloride 107 Carbon Dioxide 26 Anion Gap 7 BUN 15 Creatinine 1.0 BUN/Creatinine Ratio 15.00 Glucose 123 H Calculated Osmolality 291.0 Calcium 9.0 Total Bilirubin 1.1 D AST 121 H ALT 129 H Alkaline Phosphatase 155 H Total Protein 6.0 L Albumin 3.1 L Globulin 2.9 Albumin/Globulin Ratio 1.00 L Rheumatoid Factor 12.4 H Objective : Exam - General General Appearance: No Acute Distress, Cooperative Additional General Exam Details: Vital Signs - Last Taken Temperature 98.2 F 11/05/18 11:09 Pulse Rate 91 11/05/18 11:09 Respiratory Rate 18 11/05/18 11:09 Blood Pressure 155/81 11/05/18 11:09 Pulse Ox 94 11/05/18 11:09 - Eye Eye Exam: No Scleral Icterus - ENT ENT Exam: Mucous Membranes Moist - Neck Neck Exam: JVP is Raised - Respiratory Respiratory Exam: Breathing Non Labored, Crackles (On the right side), Coarse Breath Sounds - Cardiovascular Cardiovascular Exam: RRR, No Murmur, No Clicks, No Gallops, No Rubs, No JVD - GI/Abdominal GI/Abdominal Exam: Normal Bowel Sounds, Non Tender, Non Distended, Soft - Extremities Extremities Exam: No Clubbing Present, No Cyanosis Present, +1 Edema - Neurological Neurological Exam: Alert, Oriented x 3, No Facial Droop, Speech Intact / Clear, Moves All Extremities Equally - Psychiatric Psychiatric Exam: Normal Affect, Normal Mood Assessment and Plan - Patient Problems (1) Pneumonia Current Visit: Yes Status: Acute Code(s): J18.9 - Pneumonia, unspecified organism Qualifiers: Pneumonia type: aspiration pneumonia Aspiration pneumonia type: unspecified Laterality: bilateral Lung location: unspecified part of lung Qualified Code(s): J69.0 - Pneumonitis due to inhalation of food and vomit (2) Congestive heart failure Current Visit: Yes Status: Acute Code(s): I50.9 - Heart failure, unspecified Qualifiers: Heart failure type: unspecified Heart failure chronicity: acute Qualified Code(s): I50.9 - Heart failure, unspecified (3) Hypothyroidism Current Visit: Yes Status: Acute Code(s): E03.9 - Hypothyroidism, unspecified Qualifiers: Hypothyroidism type: acquired Qualified Code(s): E03.9 - Hypothyroidism, unspecified (4) History of hypertension Current Visit: Yes Status: Acute Code(s): Z86.79 - Personal history of other diseases of the circulatory system (5) Elevated LFTs Current Visit: Yes Status: Acute Code(s): R94.5 - Abnormal results of liver function studies - Assessment / Plan Additional Assessment/Plan Details: The patient appears overall better from her pneumonia. I think she can tolerate going to by mouth antibiotics that she has defervesced and has not had any fever over the last 48 hours. I did look at the CT scan, it is multifocal. The effusions are somewhat confusing that they are on both sides, could be parapneu reggie but suspect that they're related to congestive heart failure. Might be too small to tap. I will discuss with radiology. Switch to Augmentin. We will get a modified barium swallow study tomorrow with occupational therapy present. I think we should aggressively diurese. Will increase Lasix to twice daily. Need to repeat echocardiogram and I will order that for Monday morning as we cannot do them except for Wednesdays and Fridays. Labs in a.m. I will check influenza even though the biofire profile was negative. Just wonder with a multifocal pneumonia. She does not get influenza vaccines.
--- NOTE | 2018-11-05 16:36 | OTI REPORT ---
Thank you for the referral of Adelia Medina. She was seen on 11/05/18 for an occupational therapy swallow evaluation. SUBJECTIVE: The patient is an 88-year-old female who is being seen today secondary to coming in with possible bilateral aspiration pneumonia. She reports that she lives on her own and is usually a very active person. She likes to go dancing with her boyfriend and go out for meals. She reports that she hasn't had any difficulty with eating or drinking previously. She has been quite sick for the last week or so. PAST MEDICAL HISTORY: Past medical history can be found in the patient's medical record. OBJECTIVE FINDINGS: Pre-Swallow Assessment: Alertness and responsiveness: The patient was alert and responsive. Reliability of responses: The patient demonstrated reliability with her responses. Facial symmetry: GOOD Volitional dry swallow: GOOD Following commands: The patient was able to follow two step directions. Neglect or apraxia: NEGATIVE Cough: WNL Nutrition and intake method over the last 24-hours: Regular foods with thin liquids. Oxygen: The patient is not on oxygen. Secretions: The patient demonstrated being able to handle her own secretions. Temperature: WNL Dentition: The patient has dentures on the top and bottom which she states she has had since her 20s secondary to having bad teeth. General observations: The patient does pretty well for herself. She is able to transfer independently. She has decent muscle tone, good head control, and jaw mobility. Her lip control is within normal limits. She does not demonstrate any drooling or asymmetries. Her sensation is within normal limits per patient report and she does not have any numbness or tingling. She has an intact gag reflex. Tongue range of motion is all within normal limits. She was able to lateralize to the left and the right including the upper and lower sulci of the mouth and has good tongue protraction. Feeding Assessment: The patient had an intact automatic swallow. Her laryngeal elevation appeared to be intact, maybe slightly less than what it should be. Today for textures we had the patient eat a variety of pureed applesauce, crackers, and diced fruit (pears). We had her eat a sandwich with meat, cheese, and bread. At first the patient was assessed with thin liquids including water. The patient demonstrated good laryngeal elevation. Swallow transit time was within normal limits. Number of swallows was 1-2. She was negative for cough but she did continually throat clear today with liquids as well as food. Voice post feed was slightly gurgley, but overall she tended to sound the same before and after swallows. We then went through the pureed, mechanical soft, and regular food items. Quite frequently the patient throat cleared and she didn't realize that she was throat clearing as much as she was. Laryngeal elevation was about the same with all the food textures. Thin liquids were assessed in between the food textures. The patient was able to eat the meal but had continuous throat clearing, which is a possible concern considering what her x-rays look like with possible bilateral aspiration pneumonia. She was also observed swallowing medication. She was able to do so with thin liquid and had good laryngeal elevation. Again, the patient throat cleared after this was completed. ASSESSMENT: It is questionable whether the patient is protecting her airway, especially with all the throat clearing that she was doing during the assessment. Swallow appears to be efficient for adequate PO intake. RECOMMENDATIONS: 1. The patient should complete a modified barium swallow study. This was discussed with Dr. Lopez and the patient's nurse. When we called radiology, the soonest we could get the patient in was tomorrow at 11:30 AM. We will schedule her to complete the modified barium swallow study to assess whether the patient is actually aspirating or if this was just regular pneumonia. 2. At this time we will continue with regular foods and thin liquids as the patient isn't necessarily coughing and this is what she has been eating and drinking for years. We will assess tomorrow whether the throat clearing is a sign of aspiration or if she is protecting her airway during meals. SWALLOW GOALS: Patient will eat 100% of diet without external signs of aspiration. Patient will complete a modified barium swallow study to assess her safety with her swallow. INITIAL TREATMENT: Treatment today consisted of the swallow evaluation only. MAXWELL
[2018-11-05] MEDS: OSELTAMIVIR PHOSPHATE 6 MG/1 ML -60 ML ORAL SUSP PO SCH ×2 (17:08→22:15)
[2018-11-05] MEDS: Amoxicill/Clav 875/125mg Tab 1 TAB TAB PO SCH (22:15)
[2018-11-06] MEDS: LEVOTHYROXINE 75 MCG TABLET PO SCH (04:39)
[2018-11-06] MEDS: FUROSEMIDE 10 MG/1 ML - 2 ML VIAL IVP SCH ×2 (08:03→15:46)
[2018-11-06] MEDS: OSELTAMIVIR PHOSPHATE 6 MG/1 ML -60 ML ORAL SUSP PO SCH ×2 (09:10→20:16)
[2018-11-06] MEDS: Metoprolol TARTRATE Tab 25 MG TAB PO SCH ×2 (09:11→20:15)
[2018-11-06] MEDS: DOCUSATE 100 MG CAPSULE PO SCH ×2 (09:11→20:15)
[2018-11-06] MEDS: ENOXAPARIN SODIUM 30 MG/0.3 ML SYRINGE SUBCUT SCH (09:11)
[2018-11-06] MEDS: Amoxicill/Clav 875/125mg Tab 1 TAB TAB PO SCH ×2 (09:11→20:15)
[2018-11-06] MEDS: LOSARTAN 25 MG TABLET PO SCH (09:11)
[2018-11-06 12:15] LABS: HEP B CORE IGM ANTIBODY Negative (Negative); HEPATITIS B SURFACE AG Negative (Negative)
[2018-11-06 14:07] LABS: HEPATITIS A IGM Negative (Negative)
--- NOTE | 2018-11-06 20:53 | DI ---
MODIFIED ESOPHAGRAM, 11/06/2018 11:30 AM : Clinical History: Dysphagia. Aspiration pneumonia. Previous Exam: None at this facility. Time Out: A "time out" session was performed to verify the patient's name and date of prior to performing this procedure. Technique: Examination is performed in conjunction with Occupational Therapy to evaluate the patient' s swallowing function. Different texture grades of barium impregnated substances were offered to the patient, ranging from thin liquids to thick liquids to solids. Please see the occupational therapist' s report for more specific details. Deglutition: Deglutition is normal and the esophagus strips well. Aspiration: With thin barium, a small amount of barium did pass anterior to the epiglottis and into t he upper airway just above the vocal cords. However, no thin barium was ever actually aspirated. The patient did cough after the thin barium. With thick liquids and solids, no barium impregnated materia l was observed to pass into the upper airway. Pooling: No pooling of material in the pyriform sinuses. Diverticulum: There is no Zenker's diverticulum. Esophagus: Spot films of the upper third of the esophagus are normal. READIN. With thin barium, a minimal amount of barium was seen to pass under the epiglottis into the upper airway but never distended to the vocal cords. This did not occur with the patient's swallowing thic k liquids or solids. 2. Deglutition itself is normal and the upper esophagus is also normal. No strictures are observed. There is no Zenker's diverticulum.
--- NOTE | 2018-11-06 22:18 | PDOC(PROG) ---
Date of Service: 11/06/18 Time of Service: 22:05 Interval History: patient seen and examined earlier today. Still feels tired, but no chest pain. coughing but not productive. no nausea or vomiting. Objective : Data - Labs CBC and BMP: 11/05/18 04:18 11/05/18 04:18 Objective : Exam - General General Appearance: No Acute Distress, Cooperative Additional General Exam Details: Selected Entries 11/04/18 03:53 11/06/18 02:31 Weight 150 lb 12.8 oz 142 lb 3.2 oz Vital Signs - Last Taken Temperature 98.4 F 11/06/18 20:53 Pulse Rate 102 H 11/06/18 20:53 Respiratory Rate 16 11/06/18 20:53 Blood Pressure 134/68 11/06/18 20:53 Pulse Ox 91 11/06/18 20:53 - Eye Eye Exam: No Scleral Icterus - ENT ENT Exam: Mucous Membranes Moist - Neck Neck Exam: JVP is Raised (minimal JVD) - Respiratory Respiratory Exam: Breathing Non Labored, Coarse Breath Sounds - Cardiovascular Cardiovascular Exam: RRR, No Murmur, No Clicks, No Gallops, No Rubs, JVD - GI/Abdominal GI/Abdominal Exam: Normal Bowel Sounds, Non Tender, Non Distended, Soft - Extremities Extremities Exam: No Clubbing Present, No Edema Present, No Cyanosis Present - Neurological Neurological Exam: Alert, Oriented x 3, No Facial Droop, Speech Intact / Clear, Moves All Extremities Equally - Psychiatric Psychiatric Exam: Normal Affect, Normal Mood Assessment and Plan - Patient Problems (1) Pneumonia Current Visit: Yes Status: Acute Code(s): J18.9 - Pneumonia, unspecified organism Qualifiers: Pneumonia type: aspiration pneumonia Aspiration pneumonia type: unspecified Laterality: bilateral Lung location: unspecified part of lung Qualified Code(s): J69.0 - Pneumonitis due to inhalation of food and vomit (2) Congestive heart failure Current Visit: Yes Status: Acute Code(s): I50.9 - Heart failure, unspecified Qualifiers: Heart failure type: unspecified Heart failure chronicity: acute Qualified Code(s): I50.9 - Heart failure, unspecified (3) Hypothyroidism Current Visit: Yes Status: Acute Code(s): E03.9 - Hypothyroidism, un specified Qualifiers: Hypothyroidism type: acquired Qualified Code(s): E03.9 - Hypothyroidism, unspecified (4) History of hypertension Current Visit: Yes Status: Acute Code(s): Z86.79 - Personal history of other diseases of the circulatory system (5) Elevated LFTs Current Visit: Yes Status: Acute Code(s): R94.5 - Abnormal results of liver function studies - Assessment / Plan Additional Assessment/Plan Details: I think effusions are acute CHF related, echo ordered and pending continue diuresis check CXR tomorrow to see if effusions are smaller, if not, consider paracentesis continue antibiotics for aspiration d/w radiology and OT regarding swallow study--patient is aspirating some liquids. will try therapy interventions and also thicken fluids. labs in AM I think LFTs are elevated due to fluid overload/CHF continue tamiflu still on about 1 LPM oxygen. has been afebrile. I would like to see improvement in labs, imaging, prior to discharge home. Patient is clinically much improved.
[2018-11-07] MEDS: LEVOTHYROXINE 75 MCG TABLET PO SCH (04:33)
[2018-11-07 05:05] LABS: BLOOD UREA NITROGEN 33 mg/dL (7-22); BUN/CREATININE RATIO 25.38 (6-20)
[2018-11-07 05:09] LABS: Hematocrit [HCT] 35.4 % (37.0-47.0); Hemoglobin [HGB] 12.1 g/dL (12.0-16.0); MEAN CORPUSCULAR HEMOGLOBIN 32.8 PG (27-31); MEAN CORPUSCULAR HGB CONC 34.2 g/dL (33-37); MEAN CORPUSCULAR VOLUME 95.9 FL (81-99); MEAN PLATELET VOLUME 9.7 FL (7.4-12.2); RED BLOOD COUNT 3.69 10^6/uL (4.20-5.40)
[2018-11-07 05:29] LABS: BAND NEUTROPHILS % 0 % (0-10); BASOPHILS % (MANUAL) 1 % (0-1); EOSINOPHILS % (MANUAL) 0 % (0-8); MONOCYTES % (MANUAL) 7 % (0-12); NEUTROPHILS % (MANUAL) 72 % (50-80); PLATELET MORPHOLOGY COMMENT NORMAL MORPHOLOGY (NORM); RBC MORPHOLOGY COMMENT NORMAL MORPHOLOGY (NORM); WBC MORPHOLOGY COMMENT NORMAL MORPHOLOGY (NORM)
[2018-11-07] MEDS: FUROSEMIDE 10 MG/1 ML - 2 ML VIAL IVP SCH ×2 (07:28→13:07)
[2018-11-07] MEDS: Amoxicill/Clav 875/125mg Tab 1 TAB TAB PO SCH ×2 (08:45→20:23)
[2018-11-07] MEDS: LOSARTAN 25 MG TABLET PO SCH (08:45)
[2018-11-07] MEDS: Metoprolol TARTRATE Tab 25 MG TAB PO SCH ×2 (08:45→20:23)
[2018-11-07] MEDS: DOCUSATE 100 MG CAPSULE PO SCH ×2 (08:45→20:23)
[2018-11-07] MEDS: ENOXAPARIN SODIUM 30 MG/0.3 ML SYRINGE SUBCUT SCH (08:45)
[2018-11-07] MEDS: OSELTAMIVIR PHOSPHATE 6 MG/1 ML -60 ML ORAL SUSP PO SCH ×2 (08:49→20:23)
[2018-11-07] MEDS ORDERED: POTASSIUM CHLORIDE 20 MEQ TAB PO ONE (09:32)
[2018-11-07 09:45] LABS: SERUM ALBUMIN 3.1 g/dL (3.5-4.8)
--- NOTE | 2018-11-07 10:49 | DI ---
PA /LATERAL CHEST, 11/07/2018 7:00 AM : Clinical History: CHF. Effusion. Previous Exam: 11/01/2018. Comparison is also made with a CT scan of the chest with IV contrast from 05/2019. Soft Tissues: No acute soft tissue abnormality. Bones: Normal. Osteoporosis. Heart: Normal heart. Lungs: There are patchy densities in both lower lobes and in the right upper lobe slightly more promi nent than on the previous chest x-ray but less prominent than on the CT scan. There are also fewer Ke rley A and Juno B lines than on the prior study. Effusion(s): Minimal bilateral pleural effusions, substantially smaller than on the CT scan. Mediastinum: Normal mediastinum. Nodules: No pulmonary nodules. Readin. The patchy densities in both lower lobes and in the right upper lobe are more pronounced than on the previous chest x-ray. These may represent aspiration pneumonitis. 2. Only minimal bilateral pleural effusions, substantially less than on the CT scan of the chest fro 11/04/2018. The interstitial markings are also less prevalent indicating these were acute interstiti al changes most likely secondary to fluid overload or CHF.
--- NOTE | 2018-11-07 11:10 | OTI REPORT ---
Thank you for the referral of Adelia Medina. She was seen on 11/06/18 for an occupational therapy modified barium swallow study. SUBJECTIVE: The patient is an 88-year-old female. The patient reported that she is still throat clearing. She thinks that she is okay with the swallow. PAST MEDICAL HISTORY: Past medical history can be found in the patient's medical record. OBJECTIVE FINDINGS: We sat the patient in a lateral view. We had the patient do thin liquids, nectar thickened liquids, mechanical soft textures, and regular food textures. Today the patient demonstrated good lip closure. She had within normal limits for chewing, good AP transit time, and she did not pocket or hold or have premature spillage. She had good tongue based retraction and stasis coating. She had a good swallow trigger. She did not have piecemeal deglutition and was negative for oral and nasal regurgitation. The patient demonstrated good hyoid/thyroid approximation, moderate hyoid protraction, and moderate laryngeal elevation. She was demonstrating penetration as well as slight aspiration during thin liquids. When tested with nectar thickened liquids, she was negative for any penetration or aspiration in a lateral view. She had moderate pharyngeal squeeze. She demonstrated minimal vallecular and piriformis pooling or residuals in this area. She had a good UES opening and was negative for any cricopharyngeal bar issues and was negative for any reflux. In anterior view, the patient also demonstrated good pharyngeal squeezes, limited pooling, and residuals. ASSESSMENT: The patient is demonstrating slight aspiration but is aspirating on thin liquids. She did not aspirate on nectar thickened liquids. Results were given to Dr. Lopez and the patient's nurse. RECOMMENDATIONS: 1. The patient can have a regular food diet. 2. The patient should be on nectar thickened liquids and no thin liquids. 3. Thin materials that are in a mixed texture such as mixed vegetable soup or fruit cups should all be thickened to a nectar thickened consistency. 4. The patient would benefit from skilled occupational therapy to address swallow strengthening and addressing the food modifications and liquid modifications that she needs. She may eventually demonstrate improvement from vital-stim therapy; however, at this time because she is Influenza B positive, we will have to wait until she is negative to see if she would want to pursue any outpatient swallow rehab. INITIAL TREATMENT: Treatment today consisted of the modified barium swallow study only. MARIAMD
--- NOTE | 2018-11-07 11:13 | OT PM DAY ---
Diagnosis : PM - Occupational Therapy S: The patient and her [id number] were both present during today's session. O: The patient and her [id number] were educated on Thick-It and nectar thickened consistencies with different liquid textures. They were also educated in how to thicken foods such as soups and things that have thinner liquid. The patient was also educated on and demonstrated effortful swallows, Timmy maneuvers, and Paige maneuvers to increase her swallow intake. She was asked to complete the effortful swallows during all meals for the first 10 swallows as well as the first 10 swallows of every liquid that she has. The patient was asked to do Paige and Timmy maneuvers x10-15 repetitions two times a day to increase her pharyngeal strength and to increase her epiglottis strength. A: The patient and her [id number] agreed. We will continue to work with her on swallow strengthening and answer any questions she has regarding food texture. P: Continue seeing patient BID during the week and one time per day over the weekend until discharged. MAXWELL
--- NOTE | 2018-11-07 15:19 | PDOC(PROG) ---
Date of Service: 11/07/18 Time of Service: 11:40 Interval History: no chest pain, does not feel short of breath. still feels weak. no nausea or vomiting. Objective : Data - Labs CBC and BMP: 11/07/18 04:40 11/07/18 04:40 - Imaging X-Ray Status: Image Reviewed by Me (chest X-ray, on my view, looks a bit better in terms of pneumonia to me, but discussing with radiology, they felt infiltrates were more prominent and effusions were better.) Objective : Exam - General General Appearance: No Acute Distress, Cooperative Additional General Exam Details: Vital Signs - Last Taken Temperature 97.9 F 11/07/18 11:32 Pulse Rate 93 11/07/18 11:32 Respiratory Rate 20 11/07/18 11:32 Blood Pressure 102/59 11/07/18 11:32 Pulse Ox 93 11/07/18 11:32 - Eye Eye Exam: No Scleral Icterus - ENT ENT Exam: Mucous Membranes Moist - Respiratory Respiratory Exam: Clear to Auscultation - Bilaterally, Breathing Non Labored, Decreased Breath Sounds (in bases bilaterally) - Cardiovascular Cardiovascular Exam: RRR, No Murmur, No Clicks, No Gallops, No Rubs, JVD (mild) - GI/Abdominal GI/Abdominal Exam: Non Tender, Non Distended, Soft - Extremities Extremities Exam: No Clubbing Present, No Edema Present, No Cyanosis Present Assessment and Plan - Patient Problems (1) Congestive heart failure Current Visit: Yes Status: Acute Code(s): I50.9 - Heart failure, unspecified Qualifiers: Heart failure type: unspecified Heart failure chronicity: acute Qualified Code(s): I50.9 - Heart failure, unspecified (2) Pneumonia Current Visit: Yes Status: Acute Code(s): J18.9 - Pneumonia, unspecified organism Qualifiers: Pneumonia type: aspiration pneumonia Aspiration pneumonia type: unspecified Laterality: bilateral Lung location: unspecified part of lung Qualified Code(s): J69.0 - Pneumonitis due to inhalation of food and vomit (3) Hypothyroidism Current Visit: Yes Status: Acute Code(s): E03.9 - Hypothyroidism, unspecified Qualifiers: Hypothyroidism type: acquired Qualified Code(s): E03.9 - Hypothyroidism, unspecified (4) History of hypertension Current Visit: Yes Status: Acute Code(s): Z86.79 - Personal history of other diseases of the circulatory system (5) Influenza B Current Visit: Yes Status: Acute Code(s): J10.1 - Influenza due to other identified influenza virus with other respiratory manifestations (6) Elevated LFTs Current Visit: Yes Status: Acute Code(s): R94.5 - Abnormal results of liver function studies - Assessment / Plan Additional Assessment/Plan Details: continue tamiflu and augmentin. augmentin should be at 7 days tonight and will stop that after last dose tonight. tamiflu for a total of 5 days continue diuresis for CHF potassium replacement electrolytes in AM ECHO on Monday PT and OT.
--- NOTE | 2018-11-07 15:21 | OT PM DAY ---
PM - Occupational Therapy S: The patient reports that she has been trying her swallow exercises. She reports some of them are harder than others. O: Today the patient worked on pudding, banana bread, and nectar thickened liquid in order to complete effortful swallows with the different textures. She worked on Timmy maneuvers and Paige maneuvers. The Paige and the Timmy maneuvers are a little more difficult for the patient but she did 10 repetitions x3 rounds of all three exercises. We also addressed how the patient is going to have to thicken some of the thinner liquids of different food textures. A: The patient is doing well. Her Timmy maneuvers are a little bit weak. We will continue to work on these as long as she is in the hospital. P: Continue seeing patient one time per day during the week and one time per day over the weekend until discharge. MAXWELL
[2018-11-07] MEDS: POTASSIUM CHLORIDE 20 MEQ TAB PO SCH (20:23)
[2018-11-08] MEDS: LEVOTHYROXINE 75 MCG TABLET PO SCH (04:54)
[2018-11-08 05:31] LABS: BLOOD UREA NITROGEN 39 mg/dL (7-22)
[2018-11-08] MEDS: FUROSEMIDE 10 MG/1 ML - 2 ML VIAL IVP SCH ×2 (07:55→14:05)
[2018-11-08] MEDS: LOSARTAN 25 MG TABLET PO SCH (09:36)
[2018-11-08] MEDS: POTASSIUM CHLORIDE 20 MEQ TAB PO SCH ×2 (09:36→20:20)
[2018-11-08] MEDS: ENOXAPARIN SODIUM 30 MG/0.3 ML SYRINGE SUBCUT SCH (09:36)
[2018-11-08] MEDS: Amoxicill/Clav 875/125mg Tab 1 TAB TAB PO SCH ×2 (09:36→20:20)
[2018-11-08] MEDS: DOCUSATE 100 MG CAPSULE PO SCH ×2 (09:36→20:20)
[2018-11-08] MEDS: OSELTAMIVIR PHOSPHATE 6 MG/1 ML -60 ML ORAL SUSP PO SCH ×2 (09:36→20:20)
[2018-11-08] MEDS: Metoprolol TARTRATE Tab 25 MG TAB PO SCH ×2 (09:37→20:20)
--- NOTE | 2018-11-08 10:51 | PT.PROG ---
Progress Note Progress Note: S. patient stated that she is feeling good this morning, she agreed to do some exercises in her room. O. Patient performed seated exercises in the form of; long arc quads, marches, heel toe raises, pillow squeezes, clam shells, resisted knee flexion, sit to stands and standing marches all x 15 bilaterally. Patient was left in bed. A. patient tolerated therapy well this morning, she was able to perform all exercises with no pain or problems. She would continue to benefit from skilled therapy to increase strength, endurance and safety at this time. P. Continue POC.
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
[2018-11-09] MEDS: LEVOTHYROXINE 75 MCG TABLET PO SCH (05:01)
[2018-11-09 06:01] LABS: BLOOD UREA NITROGEN 44 mg/dL (7-22); BUN/CREATININE RATIO 33.84 (6-20); SERUM ALBUMIN 3.2 g/dL (3.5-4.8)
[2018-11-09] MEDS: LEVALBUTEROL HCL 1.25 MG/3 ML NEB PRN ×2 (06:40→14:51)
[2018-11-09] MEDS: FUROSEMIDE 10 MG/1 ML - 2 ML VIAL IVP SCH ×2 (07:16→13:51)
--- NOTE | 2018-11-09 08:17 | DI ---
PA /LATERAL CHEST, 11/09/2018 7:00 AM : Clinical History: Effusion. Aspiration pneumonia. Heart failure. Previous Exam: 11/07/2018. Soft Tissues: No acute soft tissue abnormality. Bones: Normal. Heart: Normal heart. Lungs: Patchy infiltrates bilaterally are virtually unchanged from the prior exam. Effusion(s): Little change in the very small bilateral pleural effusions. Mediastinum: Normal mediastinum. Reading: Virtually no change in the appearance of the bilateral patchy infiltrates and small pleural effusions .
[2018-11-09] MEDS: DOCUSATE 100 MG CAPSULE PO SCH (09:00)
[2018-11-09] MEDS: Metoprolol TARTRATE Tab 25 MG TAB PO SCH (09:00)
[2018-11-09] MEDS: POTASSIUM CHLORIDE 20 MEQ TAB PO SCH (09:00)
[2018-11-09] MEDS: LOSARTAN 25 MG TABLET PO SCH (09:00)
[2018-11-09] MEDS: ENOXAPARIN SODIUM 30 MG/0.3 ML SYRINGE SUBCUT SCH (09:00)
[2018-11-09] MEDS: OSELTAMIVIR PHOSPHATE 6 MG/1 ML -60 ML ORAL SUSP PO SCH (09:01)
--- NOTE | 2018-11-09 09:54 | PTI REPORT ---
Thank you for the referral of Adelia Medina. She was seen on 11/07/18 for an inpatient evaluation secondary to weakness. SUBJECTIVE: The patient is an 88-year-old female. The patient reports she has been in the hospital since last Monday due to the flu as well as pneumonia. She has been working with occupational therapy due to difficulty swallowing; however, is doing much better. She states she is under the impression at this time that she is not going to be discharged until Monday due to seeing the checker product design. She states normally [place] and does all of her own shopping and driving and is independent with everything. She does have a significant other that helps her with heavier tasks. She states her biggest complaint at this time is that because of her influenza, she has not been allowed outside of her room to walk and she feels like she is getting very weak. PAST MEDICAL HISTORY: Past medical history can be found in the patient's medical record. OBJECTIVE FINDINGS: General observations: The patient is currently on oxygen via nasal cannula; although not at home. Pain: The patient denies any pain. Range of motion/Strength: Active range of motion of bilateral lower extremities is well within normal limits with strength at this time at 4/5. See occupational therapy evaluation for upper extremity strength and range of motion. Ambulation: Ambulatory activities were not able to be performed due to being limited to her room due to influenza. Bed mobility/Transfers: The patient is able to perform bed mobility and transfers with stand by assistance. ASSESSMENT: Problem List: Generalized deconditioning due to long hospital stay Physical Therapy Goals: To be met by discharge from inpatient: Patient will be able to ambulate greater than 300 feet continuously for household and community ambulation. Patient will be able to ascend and descend a flight of stairs due to the multiple stairs in her home. TREATMENT PLAN: Patient will be seen B.I.D during the week and one time per day over the weekend as an inpatient to address the above goals and objectives. INITIAL TREATMENT: Treatment today consisted of the initial evaluation followed by the patient performing therapeutic exercises and functional activities including sit to stands x15, resisted long arc quads and hamstring curls x25 each, standing heel raises with bilateral hand hold assist, standing marching with emphasis on hip flexion x15 each with hand hold assist x1, straight leg raise circles x15 each both clockwise and counterclockwise, bridges, and crunches x25. MTDD
--- NOTE | 2018-11-09 11:58 | OT.PROG ---
Progress Note Progress Note: S: pt reported she was doing well and nothing new to report. O :pt was seen in her room today after completing PT. She completed UE exercises with RTB in all planes x10 with BUE to increase strength to assist with postural transitions. A: pt participated well and would continue to benefit from therapy in increase overall function. P: continue per pOC..
[2018-11-09 13:46] VITALS: BP 103/49; TEMP 97.6
[2018-11-09 14:52] VITALS: RESP 16; O2SAT 94
--- NOTE | 2018-11-09 15:42 | PT.PROG ---
Progress Note Progress Note: S. patient stated that she is tired this afternoon. she agreed to do some exercises in her room. O. Patient performed seated exercises in the form of; long arc quads, marches, heel toe raises, pillow squeezes, clam shells, resisted knee flexion, sit to stands and standing marches all x 15 bilaterally. Patient was left in bed. A. patient tolerated therapy well this afternoon, she was able to perform all exercises with no pain or problems. She would continue to benefit from skilled therapy to increase strength, endurance and safety at this time. P. Continue POC.
--- NOTE | 2018-11-09 15:50 | DCSUMMARY ---
Hospitalization Summary Admit Date: 11/01/2018 Discharge Date: 11/09/18 Primary Diagnosis:: bacterial aspiration pneumonia and influenza pneumonia Secondary Diagnosis:: Probable congestive heart failure Hospital Course: This very pleasant 88-year-old female who came in with shortness breath, pneumonia, and it was multifocal. She was originally started on medications for potential aspiration pneumonia. A swallow study confirm that and as she requires thickened fluids. She finished her 7 days of antibiotics and was afebrile with a reducing white count. Due to the multifocal nature of the pneumonia, I did check for influenza. It was positive. We started her on Tamiflu and she's completed a course of that as well. She was diuresed as she had bilateral effusions and it looked more consistent with congestive heart failure and effusion size did jerk decrease during the hospital stay although not completely resolved. I do not think that these are inflammatory or parapneumonic effusions. I think these are likely related heart failure given the bilateral nature. Because they shrink with diuresis, I think we can hold off on doing a thoracentesis and see where this goes at 3 weeks. If the effusions are still present then perhaps she needs further workup and evaluation. The patient was hypoxic through the hospital stay but by the day of discharge was satting greater than 91% on room air. Physical therapy was started and the patient did very well with that and feels much stronger after a couple days of therapy. An echocardiogram was done on the date of discharge and she will review that with the primary physician and also get a chest x-ray in 3 weeks to review that as well. Liver enzymes and brain natruretic peptide were elevated and I think this was due to right-sided congestive heart failure most likely. Again echocardiogram done today and is pending. An ultrasound was done and it did not reveal any evidence of cirrhosis. A hepatitis panel was negative. Liver enzymes are nearly normalized now at the t maria fernanda of discharge. Today, no complaints of chest pain, shortness breath, nausea or vomiting. Fatigue has improved. The patient is "ready to go home". Assessment and Plan: 1. As per discharge assessments noted 2. Disposition: Patient is discharged home. 3. Condition on discharge, stable and improved. 4. Diet: regular diet 5. Activities: resume normal activities 6. Follow-Up: 1. Dr. Silva in one week 7. Medications at the Time of Discharge: Home Medications Medication Instructions Recorded Confirmed Type cholecalciferol (vitamin D3) 2,000 2,000 unit PO QDAY tab 04/04/18 11/06/18 History unit tablet cinnamon bark 500 mg capsule 1,000 mg PO QDAY cap 04/04/18 11/01/18 History magnesium oxide 400 mg (241.3 mg 400 mg PO QDAY tab 04/04/18 11/01/18 History magnesium) tablet multivitamin-ferrous 1 tab PO QDAY 04/04/18 11/01/18 History fumarate-folic acid 18 mg-400 mcg tablet levothyroxine 75 mcg tablet 75 mcg PO QDAY #90 tab 06/04/18 11/01/18 Rx losartan 25 mg tablet 25 mg PO QDAY #90 tab 06/04/18 11/01/18 Rx metoprolol tartrate 50 mg tablet 25 mg PO BID #90 tab 06/04/18 11/01/18 Rx rosuvastatin 20 mg tablet 20 mg PO QHS #90 tab 07/02/18 11/01/18 Rx spironolactone 25 0.5 tab PO QDAY #60 tab 08/29/18 11/01/18 Rx mg-hydrochlorothiazide 25 mg tablet [place] [facility] 1 tab PO TID 10/03/18 11/06/18 History Furosemide [Lasix] 40 mg PO BID #60 tablet 11/09/18 Rx Potassium Chloride [Klor-Con] 20 meq PO DAILY #30 tab 11/09/18 Rx 8. Time, care, counseling and coordination of care for this discharge is greater than 30 minutes. Exam - Vitals Vital Signs: Vital Signs Height 5 ft 2 in Weight 139 lb Vital Signs - Last Taken Temperature 97.6 F 11/09/18 13:00 Pulse Rate 61 11/09/18 14:52 Respiratory Rate 16 11/09/18 14:52 Blood Pressure 103/49 11/09/18 13:00 Pulse Ox 94 11/09/18 14:51 - General General Appearance: No Acute Distress, Cooperative - Eye Eye Exam: POSITIVE: No Scleral Icterus - ENT ENT Exam: POSITIVE: Mucous Membranes Moist - Neck Neck Exam: JVP is not Raised (Jugular venous distention has resolved) - Respiratory Respiratory Exam: POSITIVE: Breathing Non Labored, Crackles (On right side) - Cardiovascular Cardiovascular Exam: POSITIVE: RRR, No Murmur, No Clicks, No Gallops, No Rubs, No JVD - GI/Abdominal GI/Abdominal Exam: POSITIVE: Normal Bowel Sounds, Non Tender, Non Distended, Soft - Extremities Extremities Exam: POSITIVE: No Clubbing Present, No Edema Present, No Cyanosis Present - Neurological Neurological Exam: POSITIVE: Alert, Oriented x 3, No Facial Droop, Speech Intact / Clear, Moves All Extremities Equally Data Peritnent Studies: 11/05/18 11/05/18 11/05/18 04:18 04:18 04:18 WBC Hgb Hct Plt Count Neutrophils % (Manual) Sodium Potassium Chloride Carbon Dioxide Anion Gap BUN Creatinine BUN/Creatinine Ratio Glucose Calculated Osmolality Calcium Total Bilirubin AST ALT Alkaline Phosphatase NT-Pro-B Natriuret Pep Total Protein Albumin Globulin Albumin/Globulin Ratio Rheumatoid Factor 12.4 H Anti-Nuclear Antibody 0.5 Hepatitis A IgM Ab Negative Hep Bs Antigen Negative Hep B Core IgM Ab Negative Hepatitis C Ab Screen Negative 11/07/18 11/07/18 11/09/18 04:40 04:40 05:20 WBC 8.38 Hgb 12.1 Hct 35.4 L Plt Count 274 Neutrophils % (Manual) 72 Sodium 143 Potassium 4.3 Chloride 105 Carbon Dioxide 28 Anion Gap 10 BUN 44 H Creatinine 1.3 H BUN/Creatinine Ratio 33.84 H Glucose 131 H Calculated Osmolality 308.0 H Calcium 9.9 Total Bilirubin 0.8 AST 35 ALT 72 H Alkaline Phosphatase 109 NT-Pro-B Natriuret Pep 1240 H 497 H Total Protein 6.1 Albumin 3.2 L Globulin 2.9 Albumin/Globulin Ratio 1.10 L Rheumatoid Factor Anti-Nuclear Antibody Hepatitis A IgM Ab Hep Bs Antigen Hep B Core IgM Ab Hepatitis C Ab Screen Patient Problems - Patient Problem List (1) Congestive heart failure Current Visit: Yes Status: Acute Code(s): I50.9 - Heart failure, unspecified Qualifiers: Heart failure type: unspecified Heart failure chronicity: acute Qualified Code(s): I50.9 - Heart failure, unspecified Category: Medical (2) Pneumonia Current Visit: Yes Status: Acute Code(s): J18.9 - Pneumonia, unspecified organism Qualifiers: Pneumonia type: aspiration pneumonia Aspiration pneumonia type: unspecified Laterality: bilateral Lung location: unspecified part of lung Qualified Code(s): J69.0 - Pneumonitis due to inhalation of food and vomit Category: Medical (3) Hypothyroidism Current Visit: Yes Status: Acute Code(s): E03.9 - Hypothyroidism, unspecified Qualifiers: Hypothyroidism type: acquired Qualified Code(s): E03.9 - Hypothyroidism, unspecified Category: Medical (4) History of hypertension Current Visit: Yes Status: Acute Code(s): Z86.79 - Personal history of other diseases of the circulatory system Category: Medical (5) Influenza B Current Visit: Yes Status: Acute Code(s): J10.1 - Influenza due to other identified influenza virus with other respiratory manifestations Category: Medical (6) Elevated LFTs Current Visit: Yes Status: Acute Code(s): R94.5 - Abnormal results of liver function studies Category: Medical
--- NOTE | 2018-11-09 16:26 | PT PM DAY ---
Diagnosis : Weakness PM - Physical Therapy S: The patient reports no new changes. O: The patient was seen in her room today. She is still in isolation due to her flu. She was seen for light strengthening exercises for the upper and lower extremities, transfers, and ambulatory activities within her room. A: The patient does a good job. Her strength seems to be better than it was yesterday. She is ambulating throughout her room with stand by assistance and appears to be making good improvement during her hospitalization. Once her restrictions are lifted, it would be nice to get her to the clinic where we can do a few more activities with her. P: Continue seeing patient BID during the week and one time per day over the weekend for transfers, ambulation, and range of motion/strengthening exercises. MAXWELL
--- NOTE | 2018-11-09 16:54 | OT.PROG ---
Progress Note Progress Note: S: pt reported she was doing ok. O: pt was seen in her room and completed Ue exercises with rTB in all planes to increase her strength. A: pt participated well and displays moderate strength and may continue to progress to improve her overall function and activity tolerance. P: continue per pOC.
--- NOTE | 2018-11-09 16:54 | OTI REPORT ---
Thank you for the referral of Adelia Medina. She was seen on 11/08/18 for an occupational therapy inpatient evaluation secondary to weakness. SUBJECTIVE: The patient is an 88-year-old female who is being seen today secondary to weakness, having pneumonia, and possibly CHF. She reports that she lives by herself. She states typically she is a very active person and she would like to get home sooner than later. The patient was seen as an inpatient having aspiration pneumonia and has to be on nectar thickened liquids but is able to be on a regular diet. PAST MEDICAL HISTORY: Past medical history can be found in the patient's medical record. OBJECTIVE FINDINGS: Bed mobility: The patient was able to come from supine to sit independently. Transfers: The patient was able to come from sit to stand independently. Range of motion: The patient demonstrated upper extremity active range of motion within functional limits. Strength: Strength throughout the upper extremities was 4+/5 for shoulder flexion, 4/5 for shoulder abduction, 4/5 for internal/external rotation, elbow flexion/extension was 4/5, and wrist flexion/extension was 4/5. Activities of daily living: The patient was able to get on and off of the toilet independently and dress lower extremities independently. The patient is independent with eating and grooming. She requires stand by assist for balance when getting out of bathtub. Cognition: The patient's comprehension, expressive social interaction, and memory all appear to be within functional limits. ASSESSMENT: The patient is demonstrating good range of motion and decent strength. Her activity tolerance is a little bit less than normal. She tends to fatigue easier. She has been working on her swallow strengthening exercises. This was assessed and the patient still needs assistance to do the Cydney maneuver correctly. The patient would benefit from OT to work on swallow strengthening daily and upper extremity strengthening to improve her abilities with ADLs and functional tasks. Short-Term Goals: To be met by discharge from inpatient: Patient will demonstrate upper extremity strength of 5/5. Patient will be independent with a home exercise program for her upper extremities. Long-Term Goals: To be met following discharge from inpatient: Patient will be discharged to home demonstrating safety and independence with all ADLs and functional transfers. TREATMENT PLAN: Patient will be seen B.I.D during the week and one time per day over the weekend as an inpatient to address the above goals and objectives. INITIAL TREATMENT: Treatment today consisted of the initial evaluation activities only. MAXWELL
--- NOTE | 2018-11-12 14:44 | OT PM DAY ---
Diagnosis : Weakness PM - Occupational Therapy S: The patient reports she is kind of bored sitting in her room. She states she is used to being active. She states she knows the exercises will be good for her. O: The patient sat edge of bed and performed red theraband resisted shoulder extension, adduction, rows, biceps curls, and internal/external rotation, 10 wall walks bilaterally with her upper extremities for reaching, and lateral arm motions into abduction x10 bilaterally. We also went through swallow strengthening exercises. She performed effortful swallows, Timmy maneuvers, and Paige maneuvers, all x10. A: The patient was a good participant. P: Continue seeing patient BID during the week and one time per day over the weekend for upper extremity strengthening, ADLs, and overall functional mobility. MARIAMD
== END 2018-11-09 16:56 | disposition home or self-care (01) | DRG 195 ==
LOC: ER 19:06 → MED/SURG 21:18
PROVIDERS: ADMIT Internal Medicine; ATTEND Internal Medicine